=== PATIENT | female | born 1985 | race Hispanic/Latino ===

== ENCOUNTER 2022-08-30 14:09 | Emergency (ER) | payer SELFPAY ==
[~2022-08-30] VITALS: Ht 165.1 cm; Wt 90.7 kg
[2022-08-30] MEDS ORDERED: CEPHALEXIN500 MG PO (14:42)
== END 2022-08-30 14:45 | disposition home or self-care (01) ==
LOC: FSED 14:27
DX: K11.20 Sialoadenitis, unspecified (principal)
CPT/HCPCS: 99282

== ENCOUNTER 2022-10-23 19:17 | Emergency (ER) | payer MEDICARE ==
[~2022-10-23] VITALS: Ht 165.1 cm; Wt 90.7 kg
[~2022-10-23 19:17] MED LIST: CEPHALEXIN500 MG PO
[2022-10-23] MEDS ORDERED: CEPHALEXIN500 MG PO (19:49)
[2022-10-23] MEDS ORDERED: IBUPROFEN600 MG PO (19:49)
[2022-10-23] MEDS ORDERED: KETOROLAC TROMETHAMINE 60 MG/2 ML VIAL IM ONE (20:00)
[2022-10-23] MEDS ORDERED: CEFTRIAXONE 1 GM VIAL IM ONE (20:00)
[2022-10-23] MEDS ORDERED: CEFTRIAXONE 1 GM VIAL ONE (20:27)
[2022-10-23] MEDS ORDERED: LIDOCAINE 1% 10 ML MULTIDOSE VIAL IJ ONE ×2 (20:28→20:45)
[2022-10-23] MEDS ORDERED: KETOROLAC TROMETHAMINE 30 MG/ML VIAL ONE (20:28)
== END 2022-10-23 20:54 | disposition home or self-care (01) ==
LOC: FSED 19:47
DX: R35.0 Frequency of micturition (principal); N39.0 Urinary tract infection, site not specified
CPT/HCPCS: 99283; J0696; J1885